=== PATIENT | male | born 1970 | race Caucasian/White ===

== ENCOUNTER 2017-07-11 12:36 | Day surgery (SDC) | END 2017-07-11 19:28 | disposition home or self-care (01) ==

== ENCOUNTER 2018-06-29 10:57 | Day surgery (SDC) | payer OTHER ==
[~2018-06-29] VITALS: Ht 162.6 cm; Wt 98.8 kg
[~2018-06-29 10:57] MED LIST: LEVO100T8 PO; LIDOCAINE 2% (SDV) 5 ML INJ ONE; METF-849 PO; PROPOFOL 200 MG INJ ONE; URSO300C21 PO; [UNRECOGNIZED DRUG - OTHER]
--- NOTE | 2018-06-29 12:50 | PREAC ---
Date/Time of Note Date/Time of Note DATE: 06/29/18 TIME: 12:49 Anesthesia Eval and Record Evaluation Time Pre-Procedure Interview DATE: 06/29/18 TIME: 12:49 Age 48 Sex male NPO: 8 hrs Preoperative diagnosis abd pain Planned procedure colonoscopy Past Medical History Past Medical History: Includes Cardio: HTN Endo: Diabetes Musculoskeletal: Osteoarthritis GI: GERD Heme: Anemia Surgery & Anesthesia Issues No known issue Meds Anticoagulation: No Beta Shirley within 24 hr: No Reason Beta Shirley not given: Pt. not on B-Shirley Reported Medications [Cirrhosis Med] No Conflict Check 07/11/17 Ursodiol* (Actigall*) 300 Mg Cap, 300 MG PO BID, #60 CAP 07/11/17 Metformin* (Glucophage*) 500 Mg Tab, 500 MG PO WITH LUNCH DINNER, #60 TAB 07/11/17 Levothyroxine Sodium* (Levothyroxine Sodium*) 100 Mcg Tablet, 100 MCG PO BEFORE BREAKFAST, #30 TAB 07/11/17 Meds reviewed: Yes Allergies Coded Allergies: No Known Allergy (Unverified , 07/11/17) Allergies Reviewed: Yes Labs/Studies Labs Reviewed: Reviewed by anesthesiologist test: Negative Studies: ECG Pre-procedure Exam Airway: Adequate mouth opening, Adequate thyromental dist Mallampati: Mallampati II Teeth: Normal Lung: Normal Heart: Normal ASA Physical Status ASA physical status: 3 Emergency: None Planned Anesthetic General/MAC: Mask Pre-operative Attestations Prior to commencing anesthesia and surgery, the patient was re-evaluated, there was verification of: *The patient's identity *The results of appropriate recent lab work and preoperative vital signs *The above evaluation not changing prior to induction *Anesthetic plan, risk benefits, alternative and complications discussed with patient/family; questions answered; patient/family understands, accepts and wishes to proceed. CINTHIA KOCH Jun 29, 2018 12:50
[2018-06-29] MEDS ORDERED: PROPOFOL 40 ML ONE (12:52)
[2018-06-29] MEDS ORDERED: CEFAZOLIN 1 GM/50 ML (PMX) 50 ML IVPB ONE (12:55)
[2018-06-29] MEDS ORDERED: No meds (13:03)
[2018-06-29 13:05] VITALS: Ht 162.6 cm; Wt 98.8 kg
[2018-06-29 13:12] VITALS: BP 135/85; PULSE 69; RESP 18
[2018-06-29 13:40] VITALS: BP 127/81; PULSE 76; RESP 18
--- NOTE | 2018-06-29 14:29 | PAC ---
Date/Time of Note Date/Time of Note DATE: 06/29/18 TIME: 14:29 Post-Anesthesia Notes Post-Anesthesia Note Last documented vital signs Vital Signs Date Temp Pulse Resp B/P (MAP) Pulse Ox O2 O2 Flow FiO2 Time Delivery Rate 06/29/18 98.0 76 18 127/81 100 Room Air 13:40 (96) Activity: WNL Respiratory function: WNL Cardiovascular function: WNL Mental status: Baseline Pain reasonably controlled: Yes Hydration appropriate: Yes Nausea/Vomiting absent: Yes CINTHIA KOCH Jun 29, 2018 14:29
== END 2018-06-29 13:57 | disposition home or self-care (01) ==
LOC: GIL 10:57
PROVIDERS: ATTEND Internal Medicine
DX: Z12.11 Encounter for screening for malignant neoplasm of colon (principal); K64.8 Other hemorrhoids; K57.30 Diverticulosis of large intestine without perforation or abscess without bleeding; E11.9 Type 2 diabetes mellitus without complications; I10 Essential (primary) hypertension
CPT/HCPCS: 45378; J0690; Z7610